=== PATIENT | female | born 1950 | race Caucasian/White ===

== ENCOUNTER 2021-07-06 19:35 | Observation (INO) | payer MEDICARE, OTHER ==
[2021-07-06 20:27] LABS: Basophils # (A) 0.1 k/uL (0-0.2); Basophils % (A) 1 %; Eosinophils # (A) 0.3 k/uL (0-0.7); Eosinophils % (A) 3 %; HCT 37.1 % (34.0-46.0); HGB 12.4 gm/dL (11.4-16.0); Lymphocytes % (A) 18 %; MCH 33.8 pg (25.0-35.0); MCHC 33.5 g/dL (31.0-37.0); Mean Platelet Volume 9.5; Monocytes # (A) 0.7 k/uL (0-1.0); Monocytes % (A) 6 %; Neutrophils # (A) 7.8 k/uL (1.3-7.7); Neutrophils % (A) 71 %; Platelet Count 196 k/uL (150-450); RBC 3.68 m/uL (3.80-5.40); RDW 12.4 % (11.5-15.5); WBC 11.1 k/uL (3.8-10.6)
[2021-07-06 20:33] LABS: Appearance,Urine Clear (Clear); Bacteria,Urine Many /hpf; Bilirubin,Urine Negative (Negative); Blood,Urine Negative (Negative); Color,Urine Yellow; Glucose,Urine (UA) 3+ (Negative); Ketones,Urine Negative (Negative); Leukocyte Esterase,Urine Negative (Negative); Mucus,Urine Rare /hpf; Nitrite,Urine Positive (Negative); Protein,Urine Trace (Negative); RBC,Urine <1 /hpf (0-5); Specific Gravity,Urine 1.013 (1.001-1.035); Squamous Epithelial Cell,Urine 3 /hpf (0-4); Urobilinogen,Urine <2.0 mg/dL (<2.0); WBC,Urine 2 /hpf (0-5)
[2021-07-06 20:36] LABS: INR 0.9 (<1.2); Prothrombin Time 9.8 sec (9.0-12.0)
[2021-07-06 20:39] LABS: Albumin 4.2 g/dL (3.5-5.0); Calcium 9.2 mg/dL (8.4-10.2); Potassium 4.2 mmol/L (3.5-5.1); Total Bilirubin 0.5 mg/dL (0.2-1.3); Total Protein 6.9 g/dL (6.3-8.2)
[2021-07-06] MEDS ORDERED: MORPHINE SULFATE 4 MG/ML SYRINGE IVP STA (20:54)
--- NOTE | 2021-07-06 20:56 | XR ---
EXAMINATION TYPE: XR abdomen acute w cxr DATE OF EXAM: 07/06/2021 8:34 PM INDICATION: Patient age:Female; 70 years old; Reason for study: Epigastric pain. COMPARISON: None. TECHNIQUE: Two radiographic views of the abdomen and an a chest radiograph were obtained. FINDINGS CHEST: Lungs/Pleura: The lungs are clear. There is no evidence of pleural effusion, focal consolidation or p neumothorax. There is flattening of the diaphragm with increased lucency of the lung apices. Mediastinum: Unremarkable. Vasculature: Normal. Heart: Normal in size. Musculoskeletal: The osseous structures are intact. FINDINGS ABDOMEN: Bowel gas pattern: Normal without dilated loops of small or large bowel. Fecal material and gas are d emonstrated throughout the colon and rectum. Abnormal calcifications: None. Musculoskeletal: Degenerative changes near the right hip with osteophyte formation. Multilevel disc d egeneration changes seen throughout the spine. IMPRESSION: 1. No radiographic evidence for acute abdominal process. 2. No acute cardiopulmonary process 3. COPD changes
[2021-07-06] MEDS: SODIUM CHLORIDE 0.9% 1,000 ML IV SCH (21:04)
--- NOTE | 2021-07-06 21:45 | CT ---
EXAMINATION TYPE: CT abdomen pelvis wo con CT DLP: 343 mGycm, Automated exposure control for dose reduction was used. DATE OF EXAM: 07/06/2021 9:16 PM COMPARISON: None CLINICAL INDICATION:Female, 70 years old with history of epigastric pain, elevated lipase ; pancreati tis TECHNIQUE: Standard CT of the abdomen and pelvis following the administration of 100 cc of Isovue 3 00 IV contrast material. Coronal and sagittal reformats were performed. FINDINGS: LOWER CHEST: Unremarkable ABDOMEN LIVER: Unremarkable GALLBLADDER AND BILE DUCTS: Gallbladder is definitively visualized. It may be surgically absent. PANCREAS: Inflammatory changes are seen around the pancreatic head and neck. No definitive evidence o f organizing fluid collection however evaluation is limited without IV contrast. SPLEEN: Unremarkable. ADRENAL GLANDS: Unremarkable. KIDNEYS AND URETERS: No evidence of hydronephrosis or renal calculus. The ureters are unremarkable. PELVIS BLADDER: Unremarkable REPRODUCTIVE: Unremarkable. ABDOMEN & PELVIS STOMACH AND BOWEL: No evidence of bowel obstruction. There is a third portion duodenal diverticulum n oted. PERITONEUM: No evidence of pneumoperitoneum or free fluid. VASCULATURE: Moderate atherosclerotic calcifications are present throughout the abdominal aorta and i ts branches. MUSCULOSKELETAL: No acute osseous abnormalities. No disc bulging at L3-L4 and L4-L5. LYMPH NODES: No gross evidence for lymphadenopathy. SOFT TISSUE/ABDOMINAL WALL: Unremarkable IMPRESSION: Mild inflammatory changes around the pancreas likely representing pancreatitis given history of eleva lucero lipase. Evaluation slightly limited given lack of IV contrast.
[2021-07-06] MEDS ORDERED: cefTRIAXone IN SWFI 1,000 MG/10 ML SYRINGE IVP STA (22:04)
[2021-07-06] MEDS ORDERED: NALOXONE 0.4 MG/ML 1 ML VIAL IV PRN (22:09)
[2021-07-06] MEDS ORDERED: ONDANSETRON 4 MG/2 ML VIAL IVP PRN (22:09)
--- NOTE | 2021-07-06 22:12 | ED ---
Abdominal Pain HPI - General Chief Complaint: Abdominal Pain Stated Complaint: Abdominal pain, Nausea Time Seen by Provider: 07/06/21 20:00 Source: patient Mode of arrival: ambulatory - History of Present Illness Initial Comments: Patient is a 70 year old female presenting with CC of abdominal pain. Patient has hx of diabetes controlled with oral medication and hx of cholecystectomy. It is located in the epigastric region, has been persistent for 1 week, and is a sharp stabbing pain that radiates to the back. Patient has had little appetite and admits to nausea and vomiting. Patient admits to constipation, last bowel movement 2 days ago. Denies chest pain, shortness of breath, fever, chills, hematemesis, hematochezia, melena, dysuria, hematuria, urgency, frequency, di fficulty urinating, weakness, headache, URI-like symptoms. - Related Data Home Medications Medication Instructions Recorded Confirmed Ferrous Sulfate [Feosol] 325 mg PO DAILY 07/06/21 07/06/21 Fluticasone/Salmeterol [Advair 1 puff PO RT-BID PRN 07/06/21 07/06/21 100-50 Diskus] Levothyroxine Sodium [Synthroid] 100 mcg PO DAILY 07/06/21 07/06/21 Melatonin 10 mg PO HS 07/06/21 07/06/21 Simvastatin 40 mg PO HS 07/06/21 07/06/21 glipiZIDE XL [Glucotrol Xl] 10 mg PO BID-W/MEALS 07/06/21 07/06/21 lisinopriL 10 mg PO DAILY 07/06/21 07/06/21 sitaGLIPtin [Januvia] 50 mg PO DAILY 07/06/21 07/06/21 traMADol HCL 50 mg PO DAILY PRN 07/06/21 07/06/21 Allergies Allergy/AdvReac Type Severity Reaction Status Date / Time iodine Allergy Unknown Verified 07/06/21 21:17 shellfish derived [Shellfish] Allergy Hallucinati Verified 07/06/21 21:17 ons Review of Systems ROS Statement: Those systems with pertinent positive or pertinent negative responses have been documented in the HPI. ROS Other: All systems not noted in ROS Statement are negative. Past Medical History Past Medical History: COPD, Diabetes Mellitus, Hyperlipidemia, Hypertension, Osteoarthritis (OA) History of Any Multi-Drug Resistant Organisms: None Reported Past Surgical History: Appendectomy, Cholecystectomy Additional Past Surgical History / Comment(s): ankle Past Psychological History: No Psychological Hx Reported Smoking Status: Current every day smoker Past Alcohol Use History: None Reported Past Drug Use History: None Reported General Exam Limitations: no limitations General appearance: alert, in no apparent distress Head exam: Present: atraumatic, normocephalic, normal inspection Eye exam: Present: normal appearance, EOMI. Absent: scleral icterus ENT exam: Present: normal exam, mucous membranes moist Neck exam: Present: normal inspection Respiratory exam: Present: normal lung sounds bilaterally. Absent: respiratory distress, wheezes, rales, rhonchi, stridor Cardiovascular Exam: Present: regular rate, normal rhythm, normal heart sounds. Absent: systolic murmur, diastolic murmur, rubs, gallop, clicks GI/Abdominal exam: Present: soft, tenderness (Epigastric region and bilateral upper quadrants), normal bowel sounds. Absent: distended, guarding, rebound, rigid Neurological exam: Present: alert, oriented X3, CN II-XII intact Psychiatric exam: Present: normal affect, normal mood Skin exam: Present: warm, dry, intact, normal color. Absent: rash Course Vital Signs 07/06/21 07/06/21 19:39 22:46 Temperature 98.2 F 98.7 F Pulse Rate 85 69 Respiratory 18 16 Rate Blood Pressure 189/72 144/69 O2 Sat by Pulse 98 96 Oximetry Medical Decision Making - Medical Decision Making Patient is a 70-year-old female with history of diabetes and cholecystectomy presenting with chief complaint of sharp epigastric pain that radiates to the back. Patient states pain has been persistent for about a week, has worsened over the last 3 days. She admits to nausea, vomiting, constipation. On examination there is extreme tenderness in the epigastric region and bilateral upper quadrants. Labs are remarkable for elevated lipase of 1402, leukocytosis with WBC of 11.1, hyponatremia with sodium of 134. Patient has known history of kidney disease, creatinine is 1.62 and BUN is 24. Hyperglycemic with glucose of 306. UA is markable for positive nitrates, many bacteria, 3+ glucose. Treated for potential UTI with Rocephin [address] of abdomen and pelvis without contrast due to kidney function shows inflammatory changes around the pancreas. I spoke with Dr. Campoverde who agreed to admit the patient. I educated the patient on the findings and the plan. She conveyed verbal understanding and agreed to the plan. I discussed this case with my attending Dr. Whitehead. - Lab Data Result diagrams: 07/06/21 20:19 07/06/21 20:19 Lab Results 07/06/21 07/06/21 07/06/21 Range/Units 20:19 20:19 20:19 WBC 11.1 H (3.8-10.6) k/uL RBC 3.68 L (3.80-5.40) m/uL Hgb 12.4 (11.4-16.0) gm/dL Hct 37.1 (34.0-46.0) % MCV 101.0 H (80.0-100.0) fL MCH 33.8 (25.0-35.0) pg MCHC 33.5 (31.0-37.0) g/dL RDW 12.4 (11.5-15.5) % Plt Count 196 (150-450) k/uL MPV 9.5 Neutrophils % 71 % Lymphocytes % 18 % Monocytes % 6 % Eosinophils % 3 % Basophils % 1 % Neutrophils # 7.8 H (1.3-7.7) k/uL Lymphocytes # 2.0 (1.0-4.8) k/uL Monocytes # 0.7 (0-1.0) k/uL Eosinophils # 0.3 (0-0.7) k/uL Basophils # 0.1 (0-0.2) k/uL PT 9.8 (9.0-12.0) sec INR 0.9 (<1.2) APTT 23.0 (22.0-30.0) sec Sodium (137-145) mmol/L Potassium (3.5-5.1) mmol/L Chloride (98-107) mmol/L Carbon Dioxide (22-30) mmol/L Anion Gap mmol/L BUN (7-17) mg/dL Creatinine (0.52-1.04) mg/dL Est GFR (CKD-EPI)AfAm (>60 ml/min/1.73 sqM) Est GFR (CKD-EPI)NonAf (>60 ml/min/1.73 sqM) Glucose (74-99) mg/dL Plasma Lactic Acid Ulises (0.7-2.0) mmol/L Calcium (8.4-10.2) mg/dL Total Bilirubin (0.2-1.3) mg/dL AST (14-36) U/L ALT (4-34) U/L Alkaline Phosphatase (38-126) U/L Troponin I (0.000-0.034) ng/mL Total Protein (6.3-8.2) g/dL Albumin (3.5-5.0) g/dL Amylase (30-110) U/L Lipase (23-300) U/L Urine Color Yellow Urine Appearance Clear (Clear) Urine pH 5.0 (5.0-8.0) Ur Specific Central 1.013 (1.001-1.035) Urine Protein Trace H (Negative) Urine Glucose (UA) 3+ H (Negative) Urine Ketones Negative (Negative) Urine Blood Negative (Negative) Urine Nitrite Positive H (Negative) Urine Bilirubin Negative (Negative) Urine Urobilinogen <2.0 (<2.0) mg/dL Ur Leukocyte Esterase Negative (Negative) Urine RBC <1 (0-5) /hpf Urine WBC 2 (0-5) /hpf Ur Squamous Epith Cells 3 (0-4) /hpf Urine Bacteria Many H (None) /hpf Urine Mucus Rare H (None) /hpf 07/06/21 07/06/21 07/06/21 Range/Units 20:19 20:19 20:19 WBC (3.8-10.6) k/uL RBC (3.80-5.40) m/uL Hgb (11.4-16.0) gm/dL Hct (34.0-46.0) % MCV (80.0-100.0) fL MCH (25.0-35.0) pg MCHC (31.0-37.0) g/dL RDW (11.5-15.5) % Plt Count (150-450) k/uL MPV Neutrophils % % Lymphocytes % % Monocytes % % Eosinophils % % Basophils % % Neutrophils # (1.3-7.7) k/uL Lymphocytes # (1.0-4.8) k/uL Monocytes # (0-1.0) k/uL Eosinophils # (0-0.7) k/uL Basophils # (0-0.2) k/uL PT (9.0-12.0) sec INR (<1.2) APTT (22.0-30.0) sec Sodium 134 L (137-145) mmol/L Potassium 4.2 (3.5-5.1) mmol/L Chloride 103 (98-107) mmol/L Carbon Dioxide 24 (22-30) mmol/L Anion Gap 7 mmol/L BUN 24 H (7-17) mg/dL Creatinine 1.62 H (0.52-1.04) mg/dL Est GFR (CKD-EPI)AfAm 37 (>60 ml/min/1.73 sqM) Est GFR (CKD-EPI)NonAf 32 (>60 ml/min/1.73 sqM) Glucose 306 H (74-99) mg/dL Plasma Lactic Acid Ulises 0.8 (0.7-2.0) mmol/L Calcium 9.2 (8.4-10.2) mg/dL Total Bilirubin 0.5 (0.2-1.3) mg/dL AST 18 (14-36) U/L ALT 12 (4-34) U/L Alkaline Phosphatase 89 (38-126) U/L Troponin I <0.012 (0.000-0.034) ng/mL Total Protein 6.9 (6.3-8.2) g/dL Albumin 4.2 (3.5-5.0) g/dL Amylase 83 (30-110) U/L Lipase 1402 H (23-300) U/L Urine Color Urine Appearance (Clear) Urine pH (5.0-8.0) Ur Specific Central (1.001-1.035) Urine Protein (Negative) Urine Glucose (UA) (Negative) Urine Ketones (Negative) Urine Blood (Negative) Urine Nitrite (Negative) Urine Bilirubin (Negative) Urine Urobilinogen (<2.0) mg/dL Ur Leukocyte Esterase (Negative) Urine RBC (0-5) /hpf Urine WBC (0-5) /hpf Ur Squamous Epith Cells (0-4) /hpf Urine Bacteria (None) /hpf Urine Mucus (None) /hpf - Radiology Data Radiology results: report reviewed CT of abdomen and pelvis without contrast: Mild inflammatory changes around the pancreas likely representing pancreatitis given history of elevated lipase. Evaluation 70 limited given lack of IV contrast. Disposition Clinical Impression: Pancreatitis Disposition: ADMITTED IP TO THIS [facility] Condition: Fair Time of Disposition: 22:47 Decision to Admit Reason: Admit from EC Decision Date: 07/06/21 Decision Time: 22:47
[2021-07-07] MEDS: MORPHINE SULFATE 4 MG/ML SYRINGE IV PRN ×3 (01:11→12:11)
[2021-07-07] MEDS: SODIUM CHLORIDE 0.9% 1,000 ML IV SCH ×3 (05:20→21:03)
[2021-07-07 07:05] LABS: Basophils # (A) 0.1 k/uL (0-0.2); Basophils % (A) 1 %; Eosinophils # (A) 0.3 k/uL (0-0.7); Eosinophils % (A) 2 %; HCT 34.1 % (34.0-46.0); HGB 11.6 gm/dL (11.4-16.0); Lymphocytes # (A) 2.2 k/uL (1.0-4.8); Lymphocytes % (A) 18 %; MCH 34.2 pg (25.0-35.0); MCV 100.4 fL (80.0-100.0); Mean Platelet Volume 10.2; Monocytes # (A) 0.8 k/uL (0-1.0); Monocytes % (A) 7 %; Neutrophils # (A) 8.6 k/uL (1.3-7.7); Neutrophils % (A) 71 %; Platelet Count 154 k/uL (150-450); RDW 13.1 % (11.5-15.5); WBC 12.2 k/uL (3.8-10.6)
[2021-07-07 07:14] LABS: Albumin 3.5 g/dL (3.5-5.0); Calcium 8.7 mg/dL (8.4-10.2); Potassium 4.6 mmol/L (3.5-5.1); Total Bilirubin 0.6 mg/dL (0.2-1.3); Total Protein 6.3 g/dL (6.3-8.2)
[2021-07-07 07:29] LABS: Glucose,Whole Blood 188 mg/dL (75-99)
--- NOTE | 2021-07-07 08:14 | US ---
EXAMINATION TYPE: US gallbladder DATE OF EXAM: 07/07/2021 COMPARISON: CT 07/06/2021 CLINICAL HISTORY: abdominal pain, pancreatitis. patient had cholecystectomy 46 years agopancreatitis EXAM MEASUREMENTS: Liver Length: 14.4 cm Gallbladder Wall: Surgically absent CBD: 1.1 cm Right Kidney: 9.0 x 3.5 x 3.4 cm Pancreas: duct = 0.3cm, no evident mass in the visualized portions Liver: wnl Gallbladder: Surgically absent Evidence for sonographic Albert's sign: no CBD: dilated with no obvious obstruction seen Right Kidney: wnl IMPRESSION: Postcholecystectomy, dilation of the common bile duct may be due to post op change.
[2021-07-07] MEDS ORDERED: SYMBICORT 80-4.5 MCG INHALER INHALATION PRN (09:11)
[2021-07-07] MEDS ORDERED: traMADol 50 MG TAB PO PRN (09:11)
[2021-07-07] MEDS: lisinopriL 10 MG TAB PO SCH (09:46)
[2021-07-07] MEDS: FERROUS SULFATE 325 MG TAB PO SCH (09:46)
--- NOTE | 2021-07-07 09:50 | P.CONS ---
History of Present Illness - Reason for Consult Consult date: 07/07/21 Pancreatitis Requesting physician: Robby Curiel - Chief Complaint Abdominal pain - History of Present Illness This is 70-year-old female who presented to the emergency department yesterday evening with complaints of abdominal pain. She states pain started approximatel y 5 days ago which she thought was related to constipation. She did have initial nausea and vomiting has not had any in the last 3 days. She was noted to have elevated lipase on admission of 1402, with normal LFTs. Gastroenterology was consulted for pancreatitis. She denies any previous history of pancreatitis, no history of alcohol abuse in the past or currently, she does have a history of cholecystectomy at age 24 for cholelithiasis, denies any recent antibiotic use, does state that she was put on lisinopril about 1 month ago and started on Januvia and glipizide within the last 6 months. She was noted to have a positive urinary tract infection on admission was given 1 dose of Rocephin. States that she has had constipation no bowel movement for the last 3-4 days duration. Apparently initially she had issues with diarrhea and was given a antidiarrheal and then has had issues with constipation since. Her past medical history includes COPD, diabetes mellitus, hyperlipidemia, hype rtension and is a current every day smoker. CT of the abdomen and pelvis shows mild inflammation around the pancreas. Patient states abdominal pain has improved. Most the pain is located in the epi gastric and right upper quadrant region. Denies any nausea or vomiting. Repeat labs WBC 12.2 hemoglobin 11.6 platelet count 154,000, total bilirubin 0.6 AST 18 ALT 10 alkaline phosphatase 78 amylase 66 lipase 836. Patient has been afebrile. Review of Systems REVIEW OF SYSTEMS: CARDIOPULMONARY: No chest pain or shortness of breath. Gastrointestinal: Right upper quadrant and epigastric pain. No nausea or vomiting. No hematemesis, coffee-ground emesis. No rectal bleeding, or melena. Constipation. GENITOURINARY: No dysuria or hematuria. MUSCULOSKELETAL: Reports normal range of motion. SKIN: No rashes. No jaundice. ENDOCRINE: No chills, fevers. No excessive weight gain or loss. No polydipsia or polyuria. PSYCHIATRIC: Unremarkable. NEUROLOGY: No change in mental status. Denies dizziness, headache. ENT: Vision unremarkable. CONSTITUTIONAL: No recent weight loss. No fever, chills, night sweats. Past Medical History Past Medical History: COPD, Diabetes Mellitus, Hyperlipidemia, Hypertension, Osteoarthritis (OA) History of Any Multi-Drug Resistant Organisms: None Reported Past Surgical History: Appendectomy, Cholecystectomy Additional Past Surgical History / Comment(s): ankle Past Psychological History: No Psychological Hx Reported Smoking Status: Current every day smoker Past Alcohol Use History: None Reported Past Drug Use History: None Reported Medications and Allergies Home Medications Medication Instructions Recorded Confirmed Type Ferrous Sulfate [Feosol] 325 mg PO DAILY 07/06/21 07/06/21 History Fluticasone/Salmeterol [Advair 1 puff PO RT-BID PRN 07/06/21 07/06/21 History 100-50 Diskus] Levothyroxine Sodium [Synthroid] 100 mcg PO DAILY 07/06/21 07/06/21 History Melatonin 10 mg PO HS 07/06/21 07/06/21 History Simvastatin 40 mg PO HS 07/06/21 07/06/21 History glipiZIDE XL [Glucotrol Xl] 10 mg PO BID-W/MEALS 07/06/21 07/06/21 History lisinopriL 10 mg PO DAILY 07/06/21 07/06/21 History sitaGLIPtin [Januvia] 50 mg PO DAILY 07/06/21 07/06/21 History traMADol HCL 50 mg PO DAILY PRN 07/06/21 07/06/21 History Allergies Allergy/AdvReac Type Severity Reaction Status Date / Time iodine Allergy Unknown Verified 07/06/21 21:17 shellfish derived [Shellfish] Allergy Hallucinati Verified 07/06/21 21:17 ons Physical Exam Vitals: Vital Signs Temp Pulse Pulse Resp BP BP Pulse Ox 07/07/21 02:18 98.2 F 63 18 167/72 94 L 07/06/21 23:57 98.5 F 86 20 169/66 96 07/06/21 22:46 98.7 F 69 16 144/69 96 07/06/21 19:39 98.2 F 85 18 189/72 98 Intake and Output 07/06/21 07/07/21 07/07/21 22:59 06:59 14:59 Other: # Voids 1 Weight 57.153 kg 57.153 kg General appearance: The patient is alert, oriented, appears in no acute distress. HET: Head is normocephalic and atraumatic. Conjunctiva pink. Sclera anicteric. Neck: Supple without lymphadenopathy. Trachea midline. Heart: S1 S2. Regular rate and rhythm. Lungs: Clear to auscultation. Abdomen: Soft, right upper quadrant and epigastric tenderness, nondistended with bowel sounds. No guarding or rigidity. Skin: No rashes. No jaundice. Extremities: Normal skin color and turgor. No pedal edema. Neurological: No focal deficits. Alert and oriented x3. Results CBC & Chem 7: 07/07/21 06:17 07/07/21 06:17 Labs: Abnormal Lab Results - Last 24 Hours (Table) 07/06/21 07/06/21 07/06/21 Range/Units 20:19 20:19 20:19 WBC 11.1 H (3.8-10.6) k/uL RBC 3.68 L (3.80-5.40) m/uL MCV 101.0 H (80.0-100.0) fL Neutrophils # 7.8 H (1.3-7.7) k/uL Sodium 134 L (137-145) mmol/L Chloride (98-107) mmol/L Carbon Dioxide (22-30) mmol/L BUN 24 H (7-17) mg/dL Creatinine 1.62 H (0.52-1.04) mg/dL Glucose 306 H (74-99) mg/dL Lipase 1402 H (23-300) U/L Urine Protein Trace H (Negative) Urine Glucose (UA) 3+ H (Negative) Urine Nitrite Positive H (Negative) Urine Bacteria Many H (None) /hpf Urine Mucus Rare H (None) /hpf 07/07/21 07/07/21 Range/Units 06:17 06:17 WBC 12.2 H (3.8-10.6) k/uL RBC 3.40 L (3.80-5.40) m/uL MCV 100.4 H (80.0-100.0) fL Neutrophils # 8.6 H (1.3-7.7) k/uL Sodium (137-145) mmol/L Chloride 109 H (98-107) mmol/L Carbon Dioxide 20 L (22-30) mmol/L BUN 20 H (7-17) mg/dL Creatinine 1.45 H (0.52-1.04) mg/dL Glucose 152 H (74-99) mg/dL Lipase 836 H (23-300) U/L Urine Protein (Negative) Urine Glucose (UA) (Negative) Urine Nitrite (Negative) Urine Bacteria (None) /hpf Urine Mucus (None) /hpf Comments: Gallbladder ultrasound: Reported post cholecystectomy, dilation of common bile d uct may be due to postop change. CBD 1.[address] abdomen and pelvis: Mild inflammatory changes around pancreas likely representing pancreatitis given history of elevated lipase. Liver unremarkable. Assessment and Plan (1) Pancreatitis Narrative/Plan: 70-year-old female who is admitted with acute onset pancreatitis. No previous history of pancreatitis, no history of alcohol abuse, or gallbladder issues. She is status post cholecystectomy age 24. The patient had presented to the emergency department with complaints of right upper quadrant/epigastric pain that began approximately 5 days ago. Initially the pain was associated with some nausea and vomiting but none over the last few days duration. Patient was recently started on lisinopril within the last 1 month, Januvia and Chlamydia bedside within the last 6 months duration. She was noted on admission to have a urinary tract infection however states that she has not been on any recent antibiotics for this. Denies any family history of pancreatic cancer pancreatitis. On admission lipase 1402, with improvement at 836. Pain is improving. CT abdomen and pelvis shows mild inflammation around the pancreas. Gallbladder ultrasound reports post cholecystectomy, dilation of common bile duct may be due to postop change. Dilated CBD with no obvious obstruction seen. Unknown etiology of pancreatitis may be medication induced, will also obtain triglycerides as well as IgG4. Current Visit: Yes Status: Acute Code(s): K85.90 - ACUTE PANCREATITIS WITHOUT NECROSIS OR INFECTION, UNSP SNOMED Code(s): 46394112 Plan: 1. Continue symptomatic and supportive care 2. Continue IV hydration 3. May advance to clear liquid diet 4. Triglycerides, IgG4 ordered 5. Repeat CMP, lipase tomorrow 6. If symptoms continue to improve, likely will feel the discharge within the next 24 to 48 hrs. Thank you for this consultation, we will continue to follow. Dr. Tammie Hays I agree with the dictator's note, documented as a scribe by Carissa Fish.
[2021-07-07 12:24] LABS: Glucose,Whole Blood 228 mg/dL (75-99)
[2021-07-07 17:18] LABS: Glucose,Whole Blood 185 mg/dL (75-99)
--- NOTE | 2021-07-07 17:32 | HP ---
HISTORY AND PHYSICAL This 70-year-old white female came to the emergency room complaining of abdominal pain. Pain started 5 days ago, thought to be constipation, nausea, vomiting. She came in with elevated lipase 1405. She does not drink. She has had her gallbladder removed. Suspect she has been using Januvia, which can cause pancreatitis. Recently started on lisinopril for hypertension. She is a diabetic. A1c has been controlled. PAST MEDICAL HISTORY: COPD, nicotine addiction, diabetes mellitus, hypertension, dyslipidemia, osteoarthritis. CT of the abdomen and pelvis: inflammation of the pancreas. White count is 12.2, hemoglobin is 11.6, platelet count 154,000. Total bilirubin 0.6. AST is 18, ALT is 10, alkaline phosphatase is 78, lipase 836. The patient is afebrile. She feels better since she has been admitted. Fourteen-point review of systems otherwise negative. SURGERIES: Appendectomy, cholecystectomy. SOCIAL HISTORY: Current everyday smoker. HOME MEDICINES: Iron, Advair, Synthroid, melatonin, simvastatin, glipizide XL, lisinopril, tramadol and Januvia. ALLERGIES: SHELLFISH. Vital signs: Temperature 98, pulse 60s to 80s, respiratory rate 18 to 20s, blood pressure 140s to 180s over 60s to 90s, O2 94 to 98. General appearance: Alert and oriented x3. HEENT normocephalic, atraumatic. Pupils equal, round, reactive. HEART: S1, S2. Lungs are clear. Skin with no rashes or jaundice. Extremities no cyanosis, clubbing, edema. Neurologic: Cranial nerves are intact. White count is 12.2, hemoglobin 11.6, BUN is 20, creatinine 1.45. UA positive for nitrates, many bacteria. ASSESSMENT: Pancreatitis, most likely secondary to Januvia, which is to be discontinued. Discussed this with the patient and we are going to switch her over maybe to Tradjenta, which does not affect pancreatitis. Does not appear to be gallbladder-related. Triglycerides are not super high. Will have to just get her off the Januvia and she should improve. Advance diet. Possibly discharge home tomorrow. MMODL / IJN: [id number] /
[2021-07-07] MEDS: glipiZIDE 10 MG TAB PO SCH (17:46)
[2021-07-07] MEDS ORDERED: MELATONIN 5 MG TABLET PO SCH (21:00)
[2021-07-07] MEDS ORDERED: ATORVASTATIN 20 MG TAB PO SCH (21:00)
[2021-07-07 22:01] LABS: Glucose,Whole Blood 137 mg/dL (75-99)
[2021-07-08] MEDS: SODIUM CHLORIDE 0.9% 1,000 ML IV SCH ×2 (05:13→12:50)
[2021-07-08] MEDS ORDERED: LEVOTHYROXINE 100 MCG TAB PO SCH (06:30)
[2021-07-08 07:11] LABS: Glucose,Whole Blood 168 mg/dL (75-99)
[2021-07-08 07:27] VITALS: BP 118/59; PULSE 75; RESP 15; TEMP 97.8
[2021-07-08] MEDS: glipiZIDE 10 MG TAB PO SCH (07:37)
[2021-07-08] MEDS: lisinopriL 10 MG TAB PO SCH (08:22)
[2021-07-08] MEDS: FERROUS SULFATE 325 MG TAB PO SCH (08:22)
[2021-07-08] MEDS ORDERED: LINAGLIPTIN 5 MG TABLET PO SCH (09:00)
[2021-07-08 09:44] LABS: Basophils # (A) 0.07 X 10*3/uL (0.00-0.10); Basophils % (A) 0.7 %; Eosinophils # (A) 0.19 X 10*3/uL (0.04-0.35); HCT 37.8 % (37.2-46.3); HGB 12.3 g/dL (12.0-15.0); Immature Grans, Automated 0.4 %; Lymphocytes # (A) 1.99 X 10*3/uL (0.90-5.00); Lymphocytes % (A) 21.1 %; MCH 33.1 pg (27.0-32.0); MCHC 32.5 g/dL (32.0-37.0); MCV 101.6 fL (80.0-97.0); Mean Platelet Volume 12.4 fL (9.5-12.2); Monocytes # (A) 0.86 X 10*3/uL (0.20-1.00); Monocytes % (A) 9.1 %; NRBC Per 100 WBC 0 /100 WBCS (0.0-0.0); Neutrophils # (A) 6.28 X 10*3/uL (1.80-7.70); Neutrophils % (A) 66.7 %; Platelet Count 129 X 10*3/uL (140-440); RBC 3.72 X 10*6/uL (4.10-5.20); RDW 12.2 % (11.5-14.5); WBC 9.43 X 10*3/uL (4.50-10.00)
[2021-07-08 09:46] LABS: African American GFR (CKD) 40.5 (60.0-200.0); Albumin 3.8 g/dL (3.8-4.9); Albumin/Globulin Ratio 1.9 (1.60-3.17); Anion Gap 9.7 mmol/L (10.00-18.00); BUN/Creat Ratio 9.67 Ratio (12.00-20.00); Blood Urea Nitrogen 14.5 mg/dL (9.0-27.0); Carbon Dioxide 22.3 mmol/L (20.0-27.5); Non-African American GFR(CKD) 34.9 (60.0-200.0); Potassium 4.6 mmol/L (3.5-5.5); Total Bilirubin 0.3 mg/dL (0.30-1.20); Total Protein 5.8 g/dL (6.2-8.2)
[2021-07-08 12:10] LABS: Glucose,Whole Blood 257 mg/dL (75-99)
--- NOTE | 2021-07-08 15:31 | P.PN ---
Subjective Progress Note Date: 07/08/21 Principal diagnosis: Pancreatitis Patient seen and examined today as a follow-up for acute onset pancreatitis. Patient states abdominal pain has improved. No nausea or vomiting. Lipase improved from 1207-131 today. Triglycerides 165. And a negative. IgG4 pending patient's been afebrile. And tolerating her diet. Objective - Vital Signs Vital signs: Vital Signs Temp 97.8 F 07/08/21 07:00 Pulse 75 07/08/21 07:00 Resp 15 07/08/21 07:00 BP 118/59 07/08/21 07:00 Pulse Ox 93 L 07/08/21 07:00 Intake & Output 07/07/21 07/08/21 07/08/21 18:59 06:59 18:59 Intake Total 762 Balance 762 Intake: Oral 762 Other: # Voids 3 1 - Exam General appearance: The patient is alert, oriented, appears in no acute distress. HET: Head is normocephalic and atraumatic. Conjunctiva pink. Sclera anicteric. Neck: Supple without lymphadenopathy. Abdomen: Soft, mild epigastric tenderness, nondistended with bowel sounds. No guarding or rigidity. Extremities: Normal skin color and turgor. No pedal edema Skin: No rashes, no jaundice Neurological: No focal deficits. Alert and oriented -3. - Labs CBC & Chem 7: 07/08/21 05:34 07/08/21 05:34 Labs: Abnormal Lab Results - Last 24 Hours (Table) 07/07/21 07/07/21 07/07/21 Range/Units 06:17 12:21 17:15 POC Glucose (mg/dL) 228 H 185 H (75-99) mg/dL Triglycerides 165.00 H (0.00-149.00) mg/dL Lipase (14-63) U/L 07/07/21 07/07/21 07/08/21 Range/Units 18:57 22:00 07:00 POC Glucose (mg/dL) 137 H 168 H (75-99) mg/dL Triglycerides (0.00-149.00) mg/dL Lipase 131 H (14-63) U/L Microbiology - Last 24 Hours (Table) 07/06/21 22:15 Blood Culture - Preliminary Blood No Growth after 24 hours 07/06/21 22:30 Blood Culture - Preliminary Blood No Growth after 24 hours Assessment and Plan (1) Pancreatitis Narrative/Plan: 70-year-old female who is admitted with acute onset pancreatitis. No previous history of pancreatitis, no history of alcohol abuse, or gallbladder issues. She is status post cholecystectomy age 24. The patient had [facility] with complaints of right upper quadrant/epigastric pain that began approximately 5 days ago. Initially the pain was associated with some nausea and vomiting but none over the last few days duration. Patient was recently started on lisinopril within the last 1 month, Januvia and Chlamydia bedside within the last 6 months duration. She was noted on admission to have a urinary tract infection however states that she has not been on any recent antibiotics for this. Denies any family history of pancreatic cancer pancreatitis. On admission lipase 1402, with improvement at 836. Pain is improving. CT abdomen and pelvis shows mild inflammation around the pancreas. Gallbladder ultrasound reports post cholecystectomy, dilation of common bile duct may be due to postop change. Dilated CBD with no obvious obstruction seen. Unknown etiology of pancreatitis may be medication induced, will also obtain triglycerides as well as IgG4. Status: Acute Code(s): K85.90 - ACUTE PANCREATITIS WITHOUT NECROSIS OR INFECTION, UNSP SNOMED Code(s): 63600790 Plan: 1. Continue symptomatic and supportive care 2. May advance diet as tolerated 3. Possible etiology for acute pancreatitis is medication induced. Triglycerides were normal, NAINA negative, IgG pending. 4. Patient is cleared from gastroenterology for discharge. Follow-up as needed. Thank you for this consultation. Dr. Tammie Hays I agree with the dictator's note, documented as a scribe by Carissa Fish.
== END 2021-07-08 14:27 | disposition home or self-care (01) ==
LOC: EC 19:35 → 6NMEDSUR 22:59
PROVIDERS: ADMIT Family Medicine; ATTEND Family Medicine
DX: K85.90 Acute pancreatitis without necrosis or infection, unspecified (principal); J44.9 Chronic obstructive pulmonary disease, unspecified; E11.65 Type 2 diabetes mellitus with hyperglycemia; E87.1 Hypo-osmolality and hyponatremia; K59.00 Constipation, unspecified; E78.5 Hyperlipidemia, unspecified; I10 Essential (primary) hypertension; M19.90 Unspecified osteoarthritis, unspecified site; F17.200 Nicotine dependence, unspecified, uncomplicated; N39.0 Urinary tract infection, site not specified; R19.7 Diarrhea, unspecified; K83.8 Other specified diseases of biliary tract; Z90.49 Acquired absence of other specified parts of digestive tract; Z71.9 Counseling, unspecified; Z79.899 Other long term (current) drug therapy; Z79.890 Hormone replacement therapy; Z79.84 Long term (current) use of oral hypoglycemic drugs; Z79.51 Long term (current) use of inhaled steroids; Z88.8 Allergy status to other drugs, medicaments and biological substances; Z91.013 Allergy to seafood
CPT/HCPCS: 96376; 96361 ×3; 96374; 96375; 99285; 36415; 93005; 80053 ×3; 82150 ×2; 83605; 83690 ×2; 84478; 84484; 85025 ×3; 85610; 85730; 81001; 87040; 82787; 86038; 74022; 76705; 74176; G0378 ×3; J2270 ×2; J0696

== ENCOUNTER → 2021-10-28 | Outpatient (CLI) | payer MEDICARE, OTHER ==
--- NOTE | 2021-10-29 07:15 | MR ---
EXAMINATION TYPE: MR pancreas wo/w con DATE OF EXAM: 10/28/2021 COMPARISON: None HISTORY: Pancreatitis, abdominal pain, nausea CONTRAST: Standard multiplanar, multisequence MRI departmental protocol images were obtained without contrast a nd with 5 mL intravenous Gadavist gadolinium contrast. There is some thinning of the pancreas. No pancreatic mass. Spleen is intact. Liver has normal size a nd contour. No discrete liver mass. Common bile duct measures 9 mm but the intrahepatic bile ducts a ppear normal. No evidence of filling defect in the distal common bile duct. Kidneys have normal size and contour. No hydronephrosis. There are bilateral renal cortical cysts verito t measure up to 12 mm. No evidence of solid renal mass. No retroperitoneal adenopathy. There is no pathologic enhancement. There is normal enhancement of the portal venous system. There is no ascites. No evidence of a bowel obstruction. IMPRESSION: There is some pancreatic atrophy. No pancreatic mass.
== END | disposition home or self-care (01) ==
LOC: RADMRIMAIN 11:46
PROVIDERS: ATTEND Internal Medicine Gastroenterology
DX: K85.90 Acute pancreatitis without necrosis or infection, unspecified (principal); R10.9 Unspecified abdominal pain; R11.0 Nausea
CPT/HCPCS: 74183; A9585